=== PATIENT | female | born 1965 | race Caucasian/White ===

== ENCOUNTER 2022-08-14 08:31 | Emergency (ER) | payer MEDICARE, OTHER ==
[2022-08-14] MEDS ORDERED: Lactated Ringers 1,000 ML IV ONE (11:50)
[2022-08-14] MEDS ORDERED: Ondansetron 4 MG/2 ML SDV IVPUSH ONE (11:50)
[2022-08-14] MEDS ORDERED: Morphine 4 MG/ML Syringe IVPUSH ONE (12:53)
[2022-08-14] MEDS ORDERED: Sodium Chloride 0.9% 1,000 ML IV ONE (12:53)
[2022-08-14 14:45] VITALS: BP 196/63; PULSE 98
== END 2022-08-14 14:40 | disposition home or self-care (01) ==
LOC: JD.ED 08:31
DX: G90.50 Complex regional pain syndrome I, unspecified (principal); I10 Essential (primary) hypertension; E11.9 Type 2 diabetes mellitus without complications; F17.210 Nicotine dependence, cigarettes, uncomplicated; Z91.048 Other nonmedicinal substance allergy status; Z91.040 Latex allergy status; Z79.899 Other long term (current) drug therapy; Z79.82 Long term (current) use of aspirin
CPT/HCPCS: 36415; 80053; 81001; 85025; 96361; 96374; 96375; 99284; J2270; J2405; J7030; J7120

== ENCOUNTER 2025-05-07 15:54 | Emergency (ER) | payer MEDICARE, OTHER ==
[2025-05-07 16:19] VITALS: BP 179/138; PULSE 125
[2025-05-07] MEDS: droPERidol 2.5 MG/ML SDV IV STA (17:03)
[2025-05-07 17:11] LABS: APPEARANCE,URINE CLEAR (Clear); GLUCOSE,URINE 1+ (Negative); OCCULT BLOOD,URINE NEGATIVE (Negative)
[2025-05-07 17:20] LABS: EPITHELIAL CELLS,URINE 0-5 /hpf (0-5)
[2025-05-07 17:24] LABS: BASOPHILS ABSOLUTE AUTO 0.1 K/mm3 (0.0-0.2); BASOPHILS PERCENT AUTO 0.4 % (0.0-1.0); EOSINOPHILS ABSOLUTE AUTO 0.0 K/mm3 (0.0-0.4); EOSINOPHILS PERCENT AUTO 0.1 % (0.0-6.0); IMMATURE GRAN ABSOLUTE AUTO 0.07 K/mm3 (0.00-0.05); IMMATURE GRAN PERCENT AUTO 0.5 % (0.0-0.4); LYMPHOCYTES ABSOLUTE AUTO 1.5 K/mm3 (1.0-4.8); LYMPHOCYTES PERCENT AUTO 10.0 % (24.0-44.0); MEAN PLATELET VOLUME 10.3 fl (9.4-12.3); MONOCYTES ABSOLUTE AUTO 0.5 K/mm3 (0.0-0.8); MONOCYTES PERCENT AUTO 3.4 % (0.0-8.0); NEUTROPHILS ABSOLUTE AUTO 13.1 K/mm3 (1.8-7.7); NEUTROPHILS PERCENT AUTO 85.6 % (41.0-71.0); NRBC ABSOLUTE 0.00 (0.00-0.02); NRBC PERCENT 0.0 % (0.0-0.2); PLATELET COUNT,PLT 278 K/mm3 (150-400); RED BLOOD CELL COUNT 5.49 M/mm3 (4.10-5.30); WHITE BLOOD CELL COUNT,WBC 15.24 K/mm3 (3.9-11.3)
[2025-05-07 17:27] LABS: BUPRENORPHINE SCREEN,URINE NEGATIVE (CUTOFF=10); METHADONE SCREEN, URINE NEGATIVE (CUTOFF=200); METHAMPHETAMINES SCREEN, URINE NEGATIVE (CUTOFF=500); OXYCODONE SCREEN,URINE NEGATIVE (CUT0FF=100); THC SCREEN,URINE 20 NG/ML PRESUMPTIVE POSITIVE (CUTOFF=50)
[2025-05-07 17:28] LABS: AMPHETAMINES SCREEN, URINE NEGATIVE (CUTOFF=500)
[2025-05-07] MEDS ORDERED: Sodium Chloride 0.9% 10 ML Syringe FLUSH PRN (17:31)
[2025-05-07 18:16] LABS: A/G RATIO 1.4 (1-2); ALANINE AMINOTRANSFERASE,ALT 47.0 U/L (14-59); ASPARTATE AMNIOTRANSFERASE,AST 24.0 U/L (15-37); BILIRUBIN TOTAL 1.2 mg/dL (0.2-1.0); BLOOD UREA NITROGEN,BUN 20.0 mg/dL (7-18); CARBON DIOXIDE,CO2 20.0 mEq/L (21-32); CHLORIDE,CL 98.0 mEq/L (98-107); CREATINE KINASE,CK 68.0 U/L (26-192); CREATININE 1.4 mg/dL (0.55-1.02); EST CRCL DRUG DOSING (CG) 36.9 mL/min; ESTIMATED GFR 43.0 mL/min (>60); GLUCOSE RANDOM 287.0 mg/dL (70-99); POTASSIUM,K 3.6 mEq/L (3.5-5.1); PROTEIN TOTAL,TP 8.0 g/dl (6.4-8.2); SODIUM,NA 138.0 mEq/L (136-145); TROPONIN I HIGH SENSITIVITY 6.0 pg/mL (<=51)
== END 2025-05-07 19:34 | disposition home or self-care (01) ==
LOC: JD.ED 15:54
DX: E83.42 Hypomagnesemia (principal); E86.9 Volume depletion, unspecified; R68.83 Chills (without fever); R19.7 Diarrhea, unspecified; I12.9 Hypertensive chronic kidney disease with stage 1 through stage 4 chronic kidney disease, or unspecified chronic kidney disease; E11.9 Type 2 diabetes mellitus without complications; N18.6 End stage renal disease; Z79.899 Other long term (current) drug therapy; Z79.82 Long term (current) use of aspirin; Z91.040 Latex allergy status; Z88.8 Allergy status to other drugs, medicaments and biological substances
CPT/HCPCS: 36415; 71045; 80053; 80306; 81001; 82550; 83690; 83735; 83880; 84484; 85025; 96365; 96368; 99285; J1790; J3475; J7030; 99284